=== PATIENT | male | born 1985 | race Caucasian/White ===

== ENCOUNTER 2016-11-01 10:34 | Day surgery (SDC) | payer BC ==
[~2016-11-01] VITALS: Ht 170.2 cm; Wt 112.4 kg
[2016-11-01] MEDS ORDERED: PRIL40 PO (10:58)
[2016-11-01 10:59] VITALS: BP 126/75; PULSE 54; TEMP 97.9
[2016-11-01 12:55] VITALS: BP 124/73; PULSE 77; TEMP 97.6
[2016-11-01 13:10] VITALS: BP 110/60; PULSE 61
[2016-11-01 13:25] VITALS: BP 113/71; PULSE 64
[2016-11-01 13:40] VITALS: BP 105/69; PULSE 78
== END 2016-11-01 13:45 | disposition home or self-care (01) ==
LOC: SDCO 10:34
DX: K21.0 Gastro-esophageal reflux disease with esophagitis (principal); F17.200 Nicotine dependence, unspecified, uncomplicated; R12 Heartburn; F32.9 Major depressive disorder, single episode, unspecified; E66.01 Morbid (severe) obesity due to excess calories; R11.2 Nausea with vomiting, unspecified; Z79.899 Other long term (current) drug therapy
CPT/HCPCS: J2250; J3010; J7030

== ENCOUNTER → 2016-11-20 | Outpatient (CLI) | payer BC ==
[~2016-11-20] MED LIST: PRIL40 PO
== END ==
LOC: COL.RAD 09:24
DX: R10.13 Epigastric pain (principal); R11.2 Nausea with vomiting, unspecified
CPT/HCPCS: A9537; J2805